=== PATIENT | female | born 1955 | race Caucasian/White ===

== ENCOUNTER → 2024-09-20 | Outpatient (CLI) | payer OTHER, SELFPAY ==
--- NOTE | 2024-09-20 09:31 | EKG_ITS ---
[facility] Test Date: 2024-09-20 Pat Name: WAGNER DAWKINS Department: Room: - Gender: Female Mails Supervisor: RTSJC : 1955 Requested By: Ernst Aldridge Order Number: [id number] Reading MD: Ernst Aldridge Measurements Intervals [place] Rate: 70 P: 39 [place]: 159 QRS: 43 QRSD: 85 T: 54 QT: 394 QTc: 426 Interpretive Statements SINUS RHYTHM Compared to ECG 09/07/2021 15:17:44 Sinus tachycardia no longer present /store/S0/[id number].pdf
== END | disposition home or self-care (01) ==
PROVIDERS: PCP Family Medicine; Referring Provider Ophthalmology; Visit Provider Ophthalmology
DX: Z01.818 Encounter for other preprocedural examination (principal)
CPT/HCPCS: 93005